=== PATIENT | female | born 1965 | race African-American/Black ===

== ENCOUNTER 2017-04-17 22:51 | Emergency (ER) | payer MEDICAID ==
[~2017-04-17] VITALS: Ht 172.7 cm; Wt 92.0 kg
[2017-04-18 04:48] VITALS: BP 124/84
[2017-04-18] MEDS ORDERED: KETOROLAC 30MG/ML VIAL IM ONE (05:15)
== END 2017-04-18 07:11 | disposition home or self-care (01) ==
LOC: ER 04-18 06:05
DX: K04.7 Periapical abscess without sinus (principal); F17.200 Nicotine dependence, unspecified, uncomplicated
CPT/HCPCS: 96372; 99283; J1885